=== PATIENT | female | born 1970 | race Asian ===

== ENCOUNTER 2020-11-14 08:17 | Outpatient (CLI) | payer OTHER ==
[2020-11-14] MEDS ORDERED: LIDOCAINE 1%, 20ML ONE (08:30)
[2020-11-14] MEDS ORDERED: LIDOCAINE 1%-EPI 1:100K, 20ML ONE (08:30)
[2020-11-14] MEDS ORDERED: SODIUM BICARBONATE 4.2%, 5ML ONE (08:30)
== END 2020-11-14 23:59 | disposition home or self-care (01) ==
LOC: CFH 08:17
PROVIDERS: ATTEND Surgery
DX: N63.11 Unspecified lump in the right breast, upper outer quadrant (principal); C50.411 Malignant neoplasm of upper-outer quadrant of right female breast; Z17.0 Estrogen receptor positive status [ER+]
CPT/HCPCS: 19083; 76642; 77065; 88305; J3490